=== PATIENT | female | born 1955 | race Caucasian/White ===

== ENCOUNTER → 2023-09-13 08:09 | Outpatient (REF) | payer MEDICARE, OTHER, SELFPAY | LOC: WDC 08:09 | PROVIDERS: ATTENDING PHYSICIAN Obstetrics & Gynecology; FAMILY PHYSICIAN Obstetrics & Gynecology | DX: Z12.31 Encounter for screening mammogram for malignant neoplasm of breast (principal) | CPT/HCPCS: 77063; 77067 ==

== ENCOUNTER → 2023-12-14 09:25 | Outpatient (REF) | payer MEDICARE, OTHER, SELFPAY | LOC: RAD 09:25 | PROVIDERS: ATTENDING PHYSICIAN Nurse Practitioner; FAMILY PHYSICIAN Internal Medicine | DX: R10.2 Pelvic and perineal pain (principal); K57.90 Diverticulosis of intestine, part unspecified, without perforation or abscess without bleeding | CPT/HCPCS: 74178; Q9967 ==

== ENCOUNTER → 2024-01-06 17:15 | Outpatient (REF) | payer MEDICARE, OTHER, SELFPAY | LOC: MRI 17:15 | PROVIDERS: ATTENDING PHYSICIAN Internal Medicine | DX: R20.2 Paresthesia of skin (principal) | CPT/HCPCS: 70553; A9575 ==

== ENCOUNTER 2024-04-17 13:11 | Observation (INO) | payer MEDICARE, OTHER, SELFPAY ==
[2024-04-17] VITALS (10 sets, daily range): BP systolic 82–123; BP diastolic 51–69; BMI 23.6; BMI 22.9
--- NOTE | 2024-04-17 09:04 | ED.GENMED ---
History of Present Illness
<Laruel Victoria MD, Resident - Last Filed: 04/17/24 11:34>
General
Chief Complaint: Abdominal Pain
Source: patient
Exam Limitations: none
Time Seen by Provider: 04/17/24 08:28
Nursing documentation reviewed up to this point in time: agreed with
Travel History
Have you traveled to any high risk areas for coronavirus over the past 14 days?: No
Have you had any contact with someone who has COVID-19?: No
Do you have any symptoms of coronavirus? Fever > 100 degrees, chills, cough, shortness of breath, sore throat, loss of taste or smell, muscle aches, or headache?: No
History of Present Illness
History of Present Illness:
68-year-old female with past medical history significant for diverticulitis, UTI, seizure disorder with last seizure in 2014, appendectomy, tubal ligation presents to the hospital for evaluation of nausea and abdominal pain x 5 days. 5 days ago
she developed severe nausea. Patient used Pepto-Bismol for 2 days without any relief then she started developing severe left lower quadrant pain that is intermittent, and pulsatile in nature, worsening over the last 3 days currently radiating into
her right lower quadrant and lower back, 10/10 in intensity. She took 2 days worth of amoxicillin prescription from her leftover pills with no relief over the last 2 days. She feels moderately constipated, and her last bowel movement was
yesterday. She denies change in the color of her stool or fresh blood in the stool. She also denies having any vomitings, fevers, chills, painful defecation, dysuria, frequency, hesitancy, flank pain, chest pain, shortness of breath, palpitations.
Past History
<Laurel Victoria MD, Resident - Last Filed: 04/17/24 11:34>
Past History
ED Past Medical History: GERD and Other (Diverticulosis)
ED Past Surgical History: Gynecological
Social History
Tobacco: Non-smoker
Alcohol: Occasional
Drug: None
Personal:
Living: with family
Employment: Employed
Family History
Family History: Other
Phy Exam
<Laurel Victoria MD, Resident - Last Filed: 04/17/24 11:34>
General Physical Exam
General Presentation: well appearing and no apparent distress
General age: appears stated age
General Skin: warm
General Habitus: normal
General Mental: alert
General Hydration: appears well hydrated
ENT Exam
ENT Exam: EOMI, TM's normal and pharynx normal
Eye Exam
Eye Exam: PERRL and EOMI
Cardiovascular Exam
Cardiovascular Exam: regular rate/rhythm, no edema, no gallop, no murmur and normal peripheral pulses
Heart Sounds: normal
Pulmonary Exam
Pulmonary Exam: lungs clear, no respiratory distress, no rales, no crackles and no rhonchi
Gastrointestinal Exam
Gastrointestinal Exam: soft, non distended, no cva tenderness, abnormal bowel sounds, rebound (in LLQ), tender and other (patient refused rectal exam.)
Neurological Exam
Neurological Exam: alert, no motor deficits and normal reflexs
Musculoskeletal Exam
Musculoskeletal Exam: no edema
Skin Exam
Skin Exam: normal color
Course
<Laurel Victoria MD, Resident - Last Filed: 04/17/24 11:34>
Orders/Labs/Results
Orders:
Orders
04/17/24 08:53
Ketorolac [Toradol] 15 mg IV NOW STA
04/17/24 08:54
CT Abd/Pel (IV only)-DH only Urgent
Reason For Exam: Rebound tenderness in LLQ
04/17/24 08:55
0.9% Sodium Chloride 1000 ml [Nss] 1,000 ml IV BOLUS
04/17/24 08:57
Diphenhydramine [Benadryl] 50 mg IV NOW STA
04/17/24 09:00
Ondansetron Injectable [Zofran] 4 mg IV NOW STA
04/17/24 09:02
Complete Blood Count/With Diff Urgent
Comprehensive Metabolic Panel Urgent
Lipase Urgent
Urinalysis Reflex To Culture Urgent
Date Specimen was Collected: 04/17/24
Time Specimen was Collected: 08:58
Urine Microscopic Reflex Cult Urgent
Diphenhydramine [Benadryl] 50 mg IV NOW STA
Diphenhydramine [Benadryl] 50 mg IV NOW STA
Hydrocortisone Sod Succinate [Solu-Cortef] 200 mg IV NOW STA
04/17/24 11:27
CefTRIAXone [Rocephin] 1,000 mg IV NOW STA
HYDROmorphone [Dilaudid] 0.5 mg IV NOW STA
MetroNIDAZOLE 500 MG/100 ML [Flagyl 500 mg] 100 ml IV NOW
Abnormal Lab Results
04/17/24
09:02
Hct 36.8 L %
(37.0-47.0)
Ur Occult Blood Reflex 2+ A
(Negative)
Urine Bacteria (Reflex) Few A
(Negative)
04/17/24 09:02
04/17/24 09:02
Vital Signs
Initial and Last Documented VS:
Initial Vital Signs
Temp Pulse Resp BP Pulse Ox
98.3 F 69 16 104/66 100
04/17/24 07:09 04/17/24 07:09 04/17/24 07:09 04/17/24 07:09 04/17/24 07:09
Last Documented Vital Signs
Temp Pulse Resp BP Pulse Ox
98.3 F 69 16 104/66 97
04/17/24 07:09 04/17/24 07:09 04/17/24 07:09 04/17/24 11:00 04/17/24 11:15
<Babatunde Jose MD - Last Filed: 04/17/24 11:31>
Orders/Labs/Results
Orders:
Orders
04/17/24 08:53
Ketorolac [Toradol] 15 mg IV NOW STA
04/17/24 08:54
CT Abd/Pel (IV only)-DH only Urgent
Reason For Exam: Rebound tenderness in LLQ
04/17/24 08:55
0.9% Sodium Chloride 1000 ml [Nss] 1,000 ml IV BOLUS
04/17/24 08:57
Diphenhydramine [Benadryl] 50 mg IV NOW STA
04/17/24 09:00
Ondansetron Injectable [Zofran] 4 mg IV NOW STA
04/17/24 09:02
Complete Blood Count/With Diff Urgent
Comprehensive Metabolic Panel Urgent
Lipase Urgent
Urinalysis Reflex To Culture Urgent
Date Specimen was Collected: 04/17/24
Time Specimen was Collected: 08:58
Urine Microscopic Reflex Cult Urgent
Diphenhydramine [Benadryl] 50 mg IV NOW STA
Diphenhydramine [Benadryl] 50 mg IV NOW STA
Hydrocortisone Sod Succinate [Solu-Cortef] 200 mg IV NOW STA
04/17/24 11:27
CefTRIAXone [Rocephin] 1,000 mg IV NOW STA
HYDROmorphone [Dilaudid] 0.5 mg IV NOW STA
MetroNIDAZOLE 500 MG/100 ML [Flagyl 500 mg] 100 ml IV NOW
Abnormal Lab Results
04/17/24
09:02
Hct 36.8 L %
(37.0-47.0)
Ur Occult Blood Reflex 2+ A
(Negative)
Urine Bacteria (Reflex) Few A
(Negative)
04/17/24 09:02
04/17/24 09:02
Vital Signs
Initial and Last Documented VS:
Initial Vital Signs
Temp Pulse Resp BP Pulse Ox
98.3 F 69 16 104/66 100
04/17/24 07:09 04/17/24 07:09 04/17/24 07:09 04/17/24 07:09 04/17/24 07:09
Last Documented Vital Signs
Temp Pulse Resp BP Pulse Ox
98.3 F 69 16 104/66 97
04/17/24 07:09 04/17/24 07:09 04/17/24 07:09 04/17/24 11:00 04/17/24 11:15
<Laurel Victoria MD, Resident - Last Filed: 04/17/24 11:34>
MDM/Problems Addressed
Differential Diagnosis Includes:
Diverticulitis, colitis, IBD, celiac's, renal stones, volvulus, bowel obstruction, adhesions.
MDM/Problems Addressed:
Nausea, abdominal pain addressed with Zofran and ketorolac
Benadryl for contrast allergy given.
Chronic conditions affecting care: Previous abdomnial surgery
<Laurel Victoria MD, Resident - Last Filed: 04/17/24 11:34>
*Radiology
Radiology exam reviewed: preliminary read by ED provider and radiology read reviewed
*Pulse Oximetry
Patient hypoxic: no
*EKG
Interpreted by ED Provider?: NA
*Business Professor Interpretation
Rate: Business Professor- N/A
*Critical Care Note
Total Time (30-74mins, 75-104mins- exclusive of procedures): Not Applicable
<Laurel Victoria MD, Resident - Last Filed: 04/17/24 11:34>
Update Note
Update Note:
Pain patient's lab results and the CT evaluation is within normal limits.
Consider other possible diagnoses such as inflammatory bowel disease, functional pain, irritable bowel syndrome, colitis, GI causes.
Updated patient on her labs and CT evaluation. Reassessment for pain showed mild improvement of her abdominal pain to 5/10.
ED Attending Note
<Laurel Victoria MD, Resident - Last Filed: 04/17/24 11:34>
-
Portions of this chart may have been created with voice recognition software.� Occasional wrong word or��sound alike� substitutions may have occurred due to the inherent limitations of voice recognition software.
<Babatunde Jose MD - Last Filed: 04/17/24 11:31>
ED Attending Note
Patient seen and examined by attending physician: Yes
I performed a history and physical exam of patient and discussed management with resident, I reviewed resident's note and agree with documented findings and plan of care.: Yes
ED Attending Note:
I have seen and evaluated the patient with a [id number] encounter. I have spoken to the resident and involved in the medical history, the physical exam, medical decision making.
Evaluation and management service: agree unless noted differently below.
Results interpretation: agree unless noted differently below.
Focused HPI: 68-year-old female with past medical history as noted presents to the emergency room for evaluation of abdominal pain. Patient reports onset of symptoms about a week ago and they have been constant and worsening since then. She
reports initially a vague lower abdominal pain since is localized to the left lower quadrant. Associated with nausea and constipation. No vomiting. No fever or chills. No urinary symptoms. She says similar to prior episodes of diverticulitis.
She says that she took some leftover doses of amoxicillin over the past 48 hours but symptoms were not improving and so she came to the ER for assessment.
Physical exam: Awake alert not in distress. Vital signs normal. Abdomen soft, diffusely tender maximal in the left lower quadrant with guarding in the left lower quadrant.
Medical Decision Makin-year-old female presents with worsening left lower quadrant abdominal pain similar to prior episodes of diverticulitis. Vitals and exam as above. Place an IV send labs including a CBC and a CMP, urinalysis. Will check
CT abdomen pelvis with IV contrast (patient has minor dye allergy, will pretreat with steroid and Benadryl). Will treat pain and provide IV fluids. Will monitor closely reassess after the above.
Labs reviewed: CBC and CMP unremarkable, urinalysis shows no signs of acute infection. CT abdomen pelvis negative for any acute pathology however on clinical reassessment patient still having significant pain and markedly tender to the touch with
guarding. Possible that she has occult diverticulitis based on location and history�CT did show diverticular disease. Added on lactate. Will cover with antibiotics in case of developing diverticulitis but I think with her degree of pain and
tenderness she should be admitted for observation and serial exams. Will provide additional pain control. Discussed case with hospitalist.
Discharge Plan
Departure
Patient Disposition: Admit
Date of Disposition: 04/17/24
Time of Disposition: 11:32
Admit to doctor: Jonathan Arriola MD
Presentation/result/management discussed w/ accepting MD/DO: Hospitalist
Discharge Problem:
Abdominal pain
Prescriptions:
No Action
phenazopyridine 200 mg Tablet
200 mg PO BID
Theragen Tablet
1 tab PO DAILY
ciprofloxacin HCl 500 mg Tablet
500 mg PO BID
Rx Instructions:
12/28/2022, patient filled medication on 12/23/2022 and takes 500 mg tab BID for 7 days
calcium carbonate [Calcium 500] 500 mg calcium (1,250 mg) Tablet
500 mg PO DAILY
ibuprofen 400 mg Tablet
400 mg PO TID PRN (Reason: mild pain)
omeprazole 40 mg capsule,delayed release(DR/EC)
40 mg PO DAILY Qty: 14 0RF
Referrals:
Ary Fink MD [Family Provider] -
Interventions
Interventions:
*Risk Screen - Suicide Last Done: 04/17/24 07:10
*General Assessment Last Done: 04/17/24 08:59
*Neglect/Abuse Screening Last Done: 04/17/24 07:10
ED- Fall Risk Assessment Last Done: 04/17/24 09:19
*ED COVID-19 Vaccine History Last Done: 04/17/24 07:10
XA-Csanmh-[id number] Assessment Last Done: 04/17/24 08:59
Discharge Date and Time
Print Language: MALTESE
[2024-04-17] MEDS: TORADOL 15 MG IV (09:11)
[2024-04-17] MEDS: NSS 1000 IV ×2 (09:11→14:36)
[2024-04-17] MEDS: ZOFRAN 4 MG IV (09:12)
[2024-04-17] MEDS: BENADRYL 50 MG IV (09:12)
[2024-04-17] MEDS: SOLU-CORTEF 200 MG IV (09:13)
[2024-04-17 09:27] LABS: % Basophils 0.5 % (0-2); % Eosinophils 1.1 % (0-6); % Immature Granulocytes 0.4 % (0-0.5); % Lymphocytes 30.1 % (20.5-51.1); % Monocytes 6.2 % (1.7-9.3); % Neutrophils 61.7 % (42.2-75.2); Absolute Eosinophils 0.1 10^3/uL (0-0.7); Absolute Lymphocytes 1.7 10^3/uL (1.2-3.4); Absolute Monocytes 0.4 10^3/uL (0.1-0.6); Absolute Neutrophils 3.5 10^3/uL (1.4-6.5); Hematocrit 36.8 % (37.0-47.0); Hemoglobin 12.4 g/dL (12.0-16.0); Mean Corp Hgb Conc. 33.7 g/dL (33.0-37.0); Mean Corpuscular Hgb 28.8 pg (27.0-31.0); Mean Corpuscular Volume 85.6 fL (81.0-99.0); Mean Platelet Volume 9.1 fL (7.4-10.4); Nucleated Red Blood Cells % 0 %; Platelet Count 274 10^3/uL (130-400); Red Cell Dist. Width 12.2 % (11.5-14.5); White Blood Cell Count 5.7 10^3/uL (4.8-10.8)
[2024-04-17 09:39] LABS: ALT (SGPT) 14 U/L (0-35); AST (SGOT) 24 U/L (14-36); Albumin 4.1 g/dl (3.5-5.0); Alkaline Phosphatase 61 U/L (38-126); Blood Urea Nitrogen 12 mg/dl (7-17); Calcium 9.6 mg/dl (8.4-10.2); Carbon Dioxide 27 mmol/L (22-30); Chloride 105 mmol/L (98-107); Estimated Creatinine Clearance 76 ml/min; Glucose 95 mg/dl (70-99); Lipase 91 U/L (23-300); Potassium 4.4 mmol/L (3.5-5.1); Sodium 142 mmol/L (135-145); Total Bilirubin 0.7 mg/dl (0.2-1.3); Total Protein 6.8 g/dl (6.3-8.2); eGFR > 60.00
[2024-04-17 11:03] LABS: Urine Albumin Negative (Neg - Trace); Urine Bilirubin Negative (Negative); Urine Character Clear (Clear); Urine Color Straw; Urine Glucose Negative (Negative); Urine Ketone Negative (Negative); Urine Leukocyte Negative (Negative); Urine Nitrite Negative (Negative); Urine Occult Blood 2+ (Negative); Urine Specific Gravity 1.005 (<1.030); Urine Urobilinogen Negative (Neg - 1+)
[2024-04-17 11:16] LABS: Urine Bacteria Few (Negative); Urine Red Blood Cell 0-2 /HPF (0-2); Urine White Cell 0-2 /HPF (0-5)
[2024-04-17] MEDS: DILAUDID 0.5 MG IV ×2 (11:36→14:39)
[2024-04-17] MEDS: FLAGYL 500 MG 100 IV ×2 (11:36→20:17)
[2024-04-17] MEDS: ROCEPHIN 1000 MG IV (11:36)
--- NOTE | 2024-04-17 12:33 | HPS.HSE ---
Addendum entered and electronically signed by Yan Gaytan MD 04/17/24 13:15:
I saw and examined the patient.
The [employer] REPORT DEVELOPER or PA's note was reviewed and I agree with the note.
Comment:
This note serves as an addendum to the H&P by reservations sales supervisor HODAN Mali NORRIS
HPI
68F HX Diverticulitis, HX Sz pw acute LLQ abdominal pain worsening over past few days. Similar too prior HX Diverticulitis
LE: Extremely TTP LLQ with guarding.
Unremarkable Labs
Unremarkable CT AP
IMPRESSION
Acute LLQ persistent pain pain and tenderness - serial evaluation for evolving acute diverticulitis
- NPO and IVF
- Empiric IV CFTZ and IV Flagyl
- PRN Dilaudid PRN
- Anti emetics Zofram
- Obs for pain control and serial abdominal exams.
- CRS consulted
LMWH for DVT Px
Full code
Obs MS
Original Note:
Family Physician
-
Family Physician: Ary Fink
Chief Complaint
-
left lower quadrant abdominal pain
History of Present Illness
68-year-old female with past medical history significant for diverticulitis, UTI, seizure disorder with last seizure in 2014, appendectomy, tubal ligation presents to the hospital for evaluation of nausea and abdominal pain x 5 days. 5 days ago
she developed abdominal pain associated with nausea. she took Pepto Bismol with no relief in her symptoms. she started developing severe left lower quadrant pain that is intermittent, worsening over the last 3 days currently radiating into her lower
back. she took amoxicillin for past four days with some relief in her symptoms. yesterday her pain got worse which prompted her to come to the ER. denied fever, chills, SUMMERS, dizzy or syncopal episode. denied chest pain, sob. denied dysuria or
hematuria.
CT with no acute findings. received Flagyl and ceftriaxone in ER. admitting for further management.
Medical History
Past Medical History
Past Medical History: Reports Other
Additional Past Medical History:
messenteric panniculitis
diverticulitis
hepatic cyst
colon polyps
GERD
Past Surgical History: Reports Other
Additional Past Surgical History:
tubal ligation
appendectomy
Social History
Tobacco: Non-smoker
Alcohol: None
Drug: None
Family History
Family History: Not pertinent
Allergies / Home Medications
Allergies reflects when Allergies were last updated in [facility].
Home Medications with original date entered in [facility]
Allergy/Medication List:
Allergies
Allergy/AdvReac Type Severity Reaction Status Date / Time
codeine Allergy Shortness Verified 12/28/22 08:04
of Breath
diazepam [From Valium] Allergy Shortness Verified 12/28/22 08:04
of Breath
fentanyl Allergy Shortness Verified 12/28/22 08:04
of Breath
iodine Allergy Rash Verified 12/28/22 08:04
morphine Allergy Shortness Verified 12/28/22 08:04
of Breath
oxycodone [From Percocet] Allergy Shortness Verified 12/28/22 08:04
of Breath
valsartan [From Diovan] Allergy Shortness Verified 12/28/22 08:04
of Breath
Home Medications
No Meds [No Current Medications] 04/17/24
Review of Systems
-
Constitutional: Reports No Symptoms
EENT: Reports No Symptoms
Respiratory: Reports No Symptoms
Cardiac: Reports No Symptoms
Abdomen/GI: Reports Abdominal Pain and Nausea
: Reports No Symptoms
Musculoskeletal: Reports No Symptoms
Skin: Reports No Symptoms
Neurological: Reports No Symptoms
Endocrine: Reports No Symptoms
Hematologic/Lymphatic: Reports No Symptoms
Psych: Reports No Symptoms
Physical Exam
Vital Signs
Vital Signs
Temp Pulse Resp BP Pulse Ox
98.3 F 69 16 98/60 95
04/17/24 07:09 04/17/24 07:09 04/17/24 07:09 04/17/24 12:00 04/17/24 12:15
Physical Exam
General: Well Developed, Well Nourished and No Apparent Distress
HEENT: NormoCephalic, Moist mucous membranes and Atraumatic
Respiratory: Clear
Cardiac: S1/S2 and Regular Rhythm; No Murmur or Rub
GI: Soft, Non Distended, Normal Bowel Sounds and Tender; No Organomegaly
Rectal: Deferred by Provider
Musculoskeletal: No Clubbing, No Cyanosis and No Edema
Skin: No Rash
Neuro: AO x 3 and Nonfocal/grossly intact
Psych: Calm
Laboratory Results
-
04/17/24 09:02
04/17/24 09:02
Laboratory Results
Total Bilirubin 0.7 mg/dl (0.2-1.3) 04/17/24 09:02
AST 24 U/L (14-36) 04/17/24 09:02
ALT 14 U/L (0-35) 04/17/24 09:02
Alkaline Phosphatase 61 U/L (38-126) 04/17/24 09:02
Lipase 91 U/L (23-300) 04/17/24 09:02
Data Reviewed
-
CT Scan: Report Reviewed by me
Lab Data: Labs Reviewed by me
Impression/Plan
-
#abdominal pain likely diverticulitis
-CT abdomen pelvis with No specific findings to explain pain. No acute intra-abdominal process identified.
2. Hepatic fatty infiltration. Benign hepatic simple cysts and probable cysts as seen previously.
3. Diverticulosis without diverticulitis.
-keep patient NPO
-IV ceftriaxone and Flagyl continued
-Dilaudid prn for pain
-Tylenol prn for fever
-CTM
#DVT prophylaxis
-Lovenox
#CODE status
-full code
--- NOTE | 2024-04-17 14:27 | CON.CRS ---
Consultation
-
Date/Time Consultation Requested: 04/17/2024, 13:08
Date/Time Consultation Performed: 04/17/2024, 15:00
Requesting Provider: Ervin Samson
Performing Provider: Luis Ramires MD
Reason for Consultation: abdominal pain
Medical History
-
Chief Complaint: abdominal pain
History of Present Illness:
68-year-old female with a past medical history of diverticulitis, presents to [facility] complaining of left lower abdominal pain and nausea for the past 5 days. The patient tried Pepto-Bismol with no relief. She denies fevers but did have
some chills. She states it feels like the pain is radiating into her lower back and is worsened over the past 3 days. She took four tabs of amoxicillin that she had at home. Her bowel movements are typically regular but have been more constipated
the past few days. She denies bleeding. Given the worsening pain she came to the ER. The patient states she has had diverticulitis in the past and she believes she was treated at [facility] for this.
The patient's last colonoscopy was by Dr. Vargas in October 2022 which showed diverticulosis in the sigmoid colon, descending colon, transverse colon, and in the ascending colon as well as three 2 mm polyps in the rectum. Pathology was consistent
with hyperplastic polyps.
The patient has underwent several CTs of the abdomen and pelvis in the past. Her last CT was due to pelvic and perineal pain in December 2023 which showed diverticula with no evidence for diverticulitis. CT in December 2022 showed mild inflammatory
process the intestinal tract. CT in May 2022 showed acute appendicitis. CT in February 2020 showed mild hazy inflammatory stranding at the root of the mesentery suggesting a low-grade mesenteric panniculitis. CT in October 2017 showed no acute
abnormality in the abdomen or pelvis.
She underwent an appendectomy for appendicitis by Dr. Giacomo Ga on 06/14/2022. She then saw him in the office in December 2022 for follow-up for her diverticulitis history. Dr. Ga had reviewed the above imaging during that visit. During the
visit she had complained of chronic left lower quadrant pain since 2018. At that visit he determined there were no grounds for surgery.
In the ER her WBC is 5.7. Her vital signs are normal and she remains afebrile. CT of the abdomen and pelvis shows no specific findings to explain the pain, no acute intra-abdominal process identified, diverticulosis without diverticulitis. Given
her abdominal pain, we have been asked to evaluate the patient for further surgical opinion.
Past Medical History
Past Medical History: Other (messenteric panniculitis, diverticulitis, hepatic cyst, colon polyps, GERD)
Past Surgical History: Appendectomy, Gynecological (Tubal ligation) and Other
Social History
Tobacco: Non-Smoker
Alcohol: None
Drug: None
Family History
Family History: Reviewed & Not Pertinent
Allergies / Home Medications
Allergy/AdvReac Type Severity Reaction Status Date / Time
codeine Allergy Shortness Verified 12/28/22 08:04
of Breath
diazepam [From Valium] Allergy Shortness Verified 12/28/22 08:04
of Breath
fentanyl Allergy Shortness Verified 12/28/22 08:04
of Breath
iodine Allergy Rash Verified 12/28/22 08:04
morphine Allergy Shortness Verified 12/28/22 08:04
of Breath
oxycodone [From Percocet] Allergy Shortness Verified 12/28/22 08:04
of Breath
valsartan [From Diovan] Allergy Shortness Verified 12/28/22 08:04
of Breath
�Medication �Instructions �Recorded �Confirmed �Type
No Meds [No Current Medications] 04/17/24 04/17/24 History
Review of Systems
-
History Source: Patient
Constitutional: Chills
Abdomen/GI: Abdominal Pain, Nausea and Constipated
A 10 point review of systems was completed, and was negative except as per HPI.
Physical Exam
Vital Signs
Temp 98 F 04/17/24 14:23
Pulse 82 04/17/24 14:23
Resp Rate 18 04/17/24 14:23
Blood pressure 110/68 04/17/24 14:23
SaO2 98 04/17/24 14:23
04/16/24 04/17/24 04/18/24
06:59 06:59 06:59
Actual Weight 66.179 kg
Body Mass Index (BMI) 22.9
Lab Results / Allergies
04/17/24 09:02
04/17/24 09:02
WBC 5.7 10^3/uL (4.8-10.8) 04/17/24 09:02
Hgb 12.4 g/dL (12.0-16.0) 04/17/24 09:02
Hct 36.8 % (37.0-47.0) L 04/17/24 09:02
Plt Count 274 10^3/uL (130-400) 04/17/24 09:02
Abs Immat Gran (auto) 0.0 10^3/uL (0-0.05) 04/17/24 09:02
Neutrophils % 61.7 % (42.2-75.2) 04/17/24 09:02
Allergy/AdvReac Type Severity Reaction Status Date / Time
codeine Allergy Shortness Verified 12/28/22 08:04
of Breath
diazepam [From Valium] Allergy Shortness Verified 12/28/22 08:04
of Breath
fentanyl Allergy Shortness Verified 12/28/22 08:04
of Breath
iodine Allergy Rash Verified 12/28/22 08:04
morphine Allergy Shortness Verified 12/28/22 08:04
of Breath
oxycodone [From Percocet] Allergy Shortness Verified 12/28/22 08:04
of Breath
valsartan [From Diovan] Allergy Shortness Verified 12/28/22 08:04
of Breath
Physical Exam
General: Well Developed, Well Nourished and No Apparent Distress
GI: Soft
Skin: Warm
Neuro: AO x 3
Psych: Calm
Data Reviewed
-
CT Scan: Image Personally Visualized and interpreted and Discussed with Patient
Labs: Labs Reviewed by me, Discussed with Physician and Discussed with Patient
Old Records: Reviewed
Assessment / Plan
-
Assessment: 68-year-old female with chronic left lower quadrant pain as well as an appendectomy by Dr. 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
Plan:
-No plans for urgent surgery at this time
-Agree with IV antibiotics
-Trend labs
-Will follow
--- NOTE | 2024-04-17 15:00 | PTCARENOTE ---
no delay received. [email or web address] 0.5mg Dilaudid ordered and admin. call thayer in reach. plan of care updated. will monitor.
[2024-04-17] MEDS: LOVENOX 40 MG SC (17:35)
[2024-04-18] MEDS: ZOFRAN 4 MG IV (01:18)
[2024-04-18 03:33] VITALS: BP 111/66
[2024-04-18] MEDS: FLAGYL 500 MG 100 IV (04:09)
[2024-04-18] MEDS: NSS 1000 IV (04:10)
[2024-04-18 07:20] VITALS: BP 90/56
[2024-04-18 08:11] LABS: Blood Urea Nitrogen 14 mg/dl (7-17); Calcium 8.8 mg/dl (8.4-10.2); Carbon Dioxide 22 mmol/L (22-30); Chloride 110 mmol/L (98-107); Estimated Creatinine Clearance 76 ml/min; Glucose 94 mg/dl (70-99); Potassium 3.6 mmol/L (3.5-5.1); Sodium 141 mmol/L (135-145); eGFR > 60.00
--- NOTE | 2024-04-18 08:18 | W.PN.HOSP.TC ---
Today's Communication/Plan
-
discharge
Assessment / Plan
Assessment / Plan
Physical Exam
General: Well Developed, Well Nourished and No Apparent Distress
HEENT: NormoCephalic, Moist mucous membranes and Atraumatic
Respiratory: Clear
Cardiac: S1/S2 and Regular Rhythm; No Murmur or Rub
GI: Soft, Non Distended, Normal Bowel Sounds and Tender; No Organomegaly
Musculoskeletal: No Clubbing, No Cyanosis and No Edema
Skin: No Rash
Neuro: AO x 3 and Nonfocal/grossly intact
Psych: Calm
68F hx diverticulitis, remote hx seizure 2014, appendectomy, tubal ligation p/w progressive nausea and abd pain x 5 days. She took Pepto Bismol with no relief in her symptoms. she started developing severe left lower quadrant pain that was
intermittent, worsening over the last 3 days. She took leftover amoxicillin at home. Pain worsened after she ran out of the few tablets abx at home, prompting ED visit. VSS afebrile CT abd/pelvis noted no acute abn's. Patient noted symptom relief
following start of empiric abx.
#abdominal pain suspected diverticulitis symptomatically improved with abx
CT abdomen pelvis appreciated
1. No specific findings to explain pain. No acute intra-abdominal process identified.
2. Hepatic fatty infiltration. Benign hepatic simple cysts and probable cysts as seen previously.
3. Diverticulosis without diverticulitis.
-Tolerating Regular Diet
-IV ceftriaxone and Flagyl transitioned to Augmentin plan for 7 days
-Dilaudid prn for pain
-Tylenol prn for fever
-Urinalysis not suggestive of UTI
-CRS eval appreciated
-Patient having regular bowel movements, denies diarrhea, eager to go home, outpt follow up with her GI doctor and Vice President & General Manager [employer] recommended.
#DVT prophylaxis
-Lovenox
#CODE status
-full code
Medically stable for discharge home with outpatient follow up recommendations.
Discussed with patient and patient's José Miguel
Total Time Preparing Discharge ___40____ minutes including examination of the patient, summary of the hospital stay, instructions for continuing care to all relevant caregivers; and preparation of discharge records, prescriptions, and referral
forms if necessary.
Anticipated Discharge: Today
Subjective/Interval History
-
Date of Service: April 18, 2024
Symptomatically improved. Patient reports feeling better since start of abx. Some tenderness left sided abd pain persists but significantly improved per patient. Overall reports feeling well, eager to go home.
Objective Data
-
Labs:
Laboratory Results
04/18/24
06:52
WBC Pending
Hgb Pending
Hct Pending
Plt Count Pending
Sodium 141
Potassium 3.6
Chloride 110 H
Carbon Dioxide 22
BUN 14
Creatinine 0.7
Glucose 94
Calcium 8.8
Vital Signs:
Vital Signs
Temp Pulse Resp BP Pulse Ox
99.2 F 88 20 90/56 99
04/18/24 07:20 04/18/24 07:20 04/18/24 07:20 04/18/24 07:20 04/18/24 07:20
I&O
04/17/24 04/18/24 04/19/24
06:59 06:59 06:59
Intake Total 1242 / 1242
Balance 1242 / 1242
[2024-04-18] MEDS: NSS 500 IV (08:20)
[2024-04-18 09:15] LABS: Hemoglobin 11.5 g/dL (12.0-16.0); Mean Corp Hgb Conc. 32.9 g/dL (33.0-37.0); Mean Corpuscular Hgb 28.5 pg (27.0-31.0); Mean Corpuscular Volume 86.8 fL (81.0-99.0); Mean Platelet Volume 9.3 fL (7.4-10.4); Platelet Count 226 10^3/uL (130-400); Red Blood Cell Count 4.03 10^6/uL (4.20-5.40); White Blood Cell Count 8.9 10^3/uL (4.8-10.8)
--- NOTE | 2024-04-18 13:00 | W.DCSUMMARY ---
Discharge Summary
Discharge Data
Date of Admission: 04/17/24
Date of Discharge: 04/18/24
-
Pending Results: No
Discharge Plan
-
Patient Disposition: Home (Routine Discharge)
Discharge Diagnosis/Procedures: Abdomen Pain suspected due to Diverticulitis
Condition: Fair
Diet: As tolerated and Regular
Additional Diets: Reduce to low residue diet if abdomen discomfort worsens with food. Then advance as tolerated when symptoms improve.
Activity: As tolerated
Driving Restrictions: As prior to admission
Bathing Restrictions: None
Activity Restrictions/Additional Instructions:
Follow up with your primary care provider in 1 week of discharge and, in 2-4 weeks of discharge, follow up with your GI doctor and Wet Milling Wheel Operator.
Augmentin has been prescribed for suspected diverticulitis, 7 days treatment.
Please take medications as prescribed/recommended and follow up with primary care provider and/or other healthcare provider involved in your care for further adjustments to your medication regimen as necessary.
Referrals:
Ary Fink MD [Family Provider] - in one week
Maria L Amaral MD [Active] - in two to four weeks
Prescriptions:
New
amoxicillin-pot clavulanate 875-125 mg Tablet
1 tab PO TID 7 Days Qty: 21 0RF
Discharge Orders:
Discharge Patient (As Directed); Ordered 04/18/24
Ordered By: Junior Toth
Discharge Date and Time
Print Language: GERMAN
--- NOTE | 2024-04-18 13:27 | CM ---
Patient was admitted under OBS, BOJORQUEZ letter provided to patient, explained and signed. employment evaluator/case manager reviewed patient's chart and met with patient and patient lives with her spouse in a 2 story home, patient is independent with adl's and ambulation,
no dme, plan is to home today no needs.
PCP: Ary Fink
Pharmacy: [facility]
Plan; Home today no needs.
[2024-04-18] MEDS: AUGMENTIN 875 MG/125 MG 1 TABLET PO (14:11)
[2024-04-18 14:18] VITALS: BP 106/60
== END 2024-04-18 14:34 | disposition home or self-care (01) ==
LOC: 4 WEST ACU 13:11
PROVIDERS: Registered Nurse; Student in an Organized Health Care Education/Training Program; ADMITTING PHYSICIAN Internal Medicine; ATTENDING PHYSICIAN Internal Medicine; CONSULT PHYSICIAN Surgery; EMERGENCY PHYSICIAN Emergency Medicine; FAMILY PHYSICIAN Internal Medicine
DX: K57.30 Diverticulosis of large intestine without perforation or abscess without bleeding (principal); K76.0 Fatty (change of) liver, not elsewhere classified
CPT/HCPCS: 74177; 80048; 80053; 81003; 81015; 83690; 85025; 85027; 93005; 96365; 96375; 96376; 99285; G0378; Q9967

== ENCOUNTER → 2024-09-14 08:03 | Outpatient (REF) | payer MEDICARE, OTHER, SELFPAY | LOC: WDC 08:03 | PROVIDERS: ATTENDING PHYSICIAN Nurse Practitioner Obstetrics & Gynecology; FAMILY PHYSICIAN Internal Medicine | DX: Z12.31 Encounter for screening mammogram for malignant neoplasm of breast (principal) | CPT/HCPCS: 77063; 77067 ==

== ENCOUNTER 2024-11-02 14:19 | Emergency (ER) | payer MEDICARE, OTHER, SELFPAY ==
[2024-11-02 14:22] VITALS: BP 151/98
[2024-11-02 14:42] LABS: % Basophils 0.8 % (0-2); % Eosinophils 1.4 % (0-6); % Immature Granulocytes 0.3 % (0-0.5); % Lymphocytes 30.9 % (20.5-51.1); % Monocytes 6.2 % (1.7-9.3); % Neutrophils 60.4 % (42.2-75.2); Absolute Basophils 0.1 10^3/uL (0-0.2); Absolute Eosinophils 0.1 10^3/uL (0-0.7); Absolute Lymphocytes 2.2 10^3/uL (1.2-3.4); Absolute Monocytes 0.4 10^3/uL (0.1-0.6); Absolute Neutrophils 4.3 10^3/uL (1.4-6.5); Hematocrit 37.3 % (37.0-47.0); Hemoglobin 12.8 g/dL (12.0-16.0); Mean Corp Hgb Conc. 34.3 g/dL (33.0-37.0); Mean Corpuscular Hgb 28.4 pg (27.0-31.0); Mean Corpuscular Volume 82.7 fL (81.0-99.0); Nucleated Red Blood Cells % 0 %; Platelet Count 281 10^3/uL (130-400); Red Blood Cell Count 4.51 10^6/uL (4.20-5.40); Red Cell Dist. Width 12.5 % (11.5-14.5); White Blood Cell Count 7.1 10^3/uL (4.8-10.8)
[2024-11-02 14:57] LABS: ALT (SGPT) 13 U/L (0-35); AST (SGOT) 21 U/L (14-36); Albumin 4.3 g/dl (3.5-5.0); Alkaline Phosphatase 67 U/L (38-126); Blood Urea Nitrogen 13 mg/dl (7-17); Calcium 9.8 mg/dl (8.4-10.2); Carbon Dioxide 23 mmol/L (22-30); Chloride 108 mmol/L (98-107); Glucose 110 mg/dl (70-99); Lipase 111 U/L (23-300); Potassium 3.7 mmol/L (3.5-5.1); Sodium 140 mmol/L (135-145); Total Bilirubin 0.7 mg/dl (0.2-1.3); Total Protein 7.2 g/dl (6.3-8.2); eGFR > 60.00
[2024-11-02 14:58] LABS: Lactic Acid 1.1 mmol/L (0.7-2.0)
--- NOTE | 2024-11-02 16:55 | ED.GENMED ---
History of Present Illness
General
Chief Complaint: Abdominal Pain
Source: patient
Exam Limitations: none
Time Seen by Provider: 11/02/24 16:02
Nursing documentation reviewed up to this point in time: agreed with
History of Present Illness
History of Present Illness:
Patient to ED with complaint of lower abd. pain. Symptoms started last week. SHe has been taking an old rx of amoxicillin without improvement. Denies fever/chills. Reports nausea and anorexia. No vomiting or diarrhea. Brought to ED by spouse for
eval.
Past History
Past History
ED Past Medical History: GERD and Other (Diverticulosis)
ED Past Surgical History: Gynecological
Social History
Tobacco: Non-smoker
Alcohol: Occasional
Drug: None
Personal:
Living: with family
Employment: Employed
Family History
Family History: Other
Review of Systems
Review of Systems
Allergies reviewed?: Yes
All Other Systems: ROS reviewed and negative except as documented in HPI and ROS
Constitutional: Reports no symptoms
EENT: Reports no symptoms
Respiratory: Reports no symptoms
Cardiac: Reports no symptoms
ABD/GI: Reports abdominal pain (bilateral lower abd. pain) and nausea
: Reports no symptoms
Musculoskeletal: Reports no symptoms
Skin: Reports no symptoms
Neurological: Reports no symptoms
Psychiatric: Reports no symptoms
Phy Exam
General Physical Exam
General Presentation: moderate distress
General age: appears stated age
General Skin: warm and dry
General Habitus: normal
General Mental: alert
Cardiovascular Exam
Cardiovascular Exam: regular rate/rhythm and no edema
Gastrointestinal Exam
Gastrointestinal Exam: normal bowel sounds, soft, no organomegaly, no pulsatile mass, non distended and no cva tenderness
Palpation: left upper quadrant: Mild tenderness, left lower quadrant: Moderate tenderness, right upper quadrant: Mild tenderness and right lower quadrant: Moderate tenderness
Musculoskeletal Exam
Musculoskeletal Exam: full ROM and neuro vasc intact
Skin Exam
Skin Exam: normal color, warm/dry and no rash
Psychiatric Exam
Psychiatric Exam: normal mood/affect
Course
Orders/Labs/Results
Orders:
Orders
11/02/24 14:33
Lactic Acid Urgent
11/02/24 14:34
CMP [Comprehensive Metabolic Panel] Urgent
Complete Blood Count/With Diff Urgent
Lipase Urgent
11/02/24 16:50
0.9% Sodium Chloride 1000 ml [Nss] 1,000 ml IV BOLUS
Ondansetron Injectable [Zofran] 4 mg IV NOW STA
11/02/24 16:51
CT Abd/pel W Iv And Oral Contr Urgent
Comment:
Reason For Exam: lower abd. pain
Iohexol [Omnipaque] See Protocol PO NOW STA
Ketorolac [Toradol] 30 mg IV NOW STA
11/02/24 16:53
Diphenhydramine [Benadryl] 50 mg IV NOW STA
Hydrocortisone Sod Succinate [Solu-Cortef] 200 mg IV NOW STA
Abnormal Lab Results
11/02/24
14:34
Chloride 108 H mmol/L
(98-107)
Glucose 110 H mg/dl
(70-99)
11/02/24 14:34
11/02/24 14:34
Vital Signs
Initial and Last Documented VS:
Initial Vital Signs
Temp Pulse Resp BP Pulse Ox
97.8 F 87 20 151/98 98
11/02/24 14:22 11/02/24 14:22 11/02/24 14:22 11/02/24 14:22 11/02/24 14:22
Last Documented Vital Signs
Temp Pulse Resp BP Pulse Ox
97.8 F 87 20 108/68 98
11/02/24 14:22 11/02/24 14:22 11/02/24 14:22 11/02/24 18:00 11/02/24 19:00
*Radiology
Radiology exam reviewed: radiology read reviewed
*Pulse Oximetry
Patient hypoxic: no
*Critical Care Note
Total Time (30-74mins, 75-104mins- exclusive of procedures): Not Applicable
Update Note
Update Note:
Patient to ED wtih complaint of lower abdominal pain, feels like prior episodes of diverticulitis Labs reveiwed, stable. WBC normal, she remains afebrile. CT tonight neg for diverticulitis, no acute findings. Will discharge home, close follow
upw tih PCP. Recommend clear liquids x 24 hours, advance as tolerated. SHe was given instructions for s/s to return to ED and she is agreeable to plan.
ED Attending Note
-
Portions of this chart may have been created with voice recognition software.� Occasional wrong word or��sound alike� substitutions may have occurred due to the inherent limitations of voice recognition software.
Discharge Plan
Departure
Patient Disposition: Home (Routine Discharge)
Date of Disposition: 11/02/24
Time of Disposition: 20:36
Patient with high blood pressure during this ER visit?: No
Condition: Good
Covid-19: Not Applicable
Discharge Problem:
Abdominal pain
Instructions: Clear Liquid Diet, Abdominal Pain
Prescriptions:
No Action
amoxicillin-pot clavulanate 875-125 mg Tablet
1 tab PO TID 7 Days Qty: 21 0RF
Referrals:
Ary Fink MD [Family Provider, Internal Medicine] - Follow up in 2-3 days
Activity Restrictions/Additional Instructions:
Return to the emergency department immediately for any changes in/worsening of your symptoms.
Interventions
Interventions:
*Risk Screen - Suicide Last Done: 11/02/24 16:22
*General Assessment Last Done: 11/02/24 14:22
*Neglect/Abuse Screening Last Done: 11/02/24 16:22
*ED- Fall Risk Assessment Last Done: 11/02/24 16:22
*ED COVID-19 Vaccine History Last Done: 11/02/24 16:22
*Nursing Disposition Last Done: 11/02/24 20:46
KK-Bqlbrl-Gotxvocwyn Assessment Last Done: 11/02/24 16:22
Discharge Date and Time
Discharge Date/Time: 11/02/24 20:48
Print Language: TUVALUAN
[2024-11-02 16:56] VITALS: BMI 22.5
[2024-11-02] MEDS: TORADOL 30 MG IV (16:57)
[2024-11-02] MEDS: OMNIPAQUE 50 ML PO (16:57)
[2024-11-02] MEDS: ZOFRAN 4 MG IV (16:57)
[2024-11-02] MEDS: NSS 1000 IV (16:59)
[2024-11-02 17:06] VITALS: BP 117/75
[2024-11-02 18:00] VITALS: BP 108/68
[2024-11-02] MEDS: BENADRYL 50 MG IV (18:06)
[2024-11-02] MEDS: SOLU-CORTEF 200 MG IV (18:06)
== END 2024-11-02 20:48 | disposition home or self-care (01) ==
LOC: EMR 14:19
PROVIDERS: EMERGENCY PHYSICIAN Emergency Medicine; FAMILY PHYSICIAN Internal Medicine
DX: R10.30 Lower abdominal pain, unspecified (principal); R11.0 Nausea; R63.0 Anorexia
CPT/HCPCS: 96374; 96375; 96361; 99284; 74177; 80053; 83605; 83690; 85025; Q9967

== ENCOUNTER 2025-01-24 12:58 | Emergency (ER) | payer MEDICARE, OTHER, SELFPAY ==
[2025-01-24 12:59] VITALS: BP 118/71
[2025-01-24 15:56] VITALS: BP 109/62; BMI 22.8
[2025-01-24 16:00] VITALS: BP 107/61
[2025-01-24 16:36] LABS: Hematocrit 38.8 % (37.0-47.0); Hemoglobin 13.0 g/dL (12.0-16.0); Mean Corp Hgb Conc. 33.5 g/dL (33.0-37.0); Mean Corpuscular Volume 83.3 fL (81.0-99.0); Nucleated Red Blood Cells % 0 %; Platelet Count 288 10^3/uL (130-400); Red Cell Dist. Width 12.2 % (11.5-14.5)
--- NOTE | 2025-01-24 16:45 | ED.GENMED ---
History of Present Illness
General
Chief Complaint: Breathing Problem
Source: patient
Exam Limitations: none
Time Seen by Provider: 01/24/25 15:48
Nursing documentation reviewed up to this point in time: agreed with
History of Present Illness
History of Present Illness:
Patient to ED with complaint of chest pain, difficulty breathing. Symptoms started 2 weeks ago and breathing symptoms continue to worsen. Complains of headache and fatigue. Took home covid 2 days ago, neg. Denies fever/chills, recent illness. No
cough. Took tums for her chest pressure without improvement. Placed in an ortho boot approx for injury to her left foot. Wore boot for approx 2 weeks. Discontinued 2 weeks ago. No swelling or pain to lower extremities. No history of DVT.
Brought to ED by spouse for eval.
Past History
Past History
ED Past Medical History: GERD and Other (Diverticulosis)
ED Past Surgical History: Gynecological
Social History
Tobacco: Non-smoker
Alcohol: Occasional
Drug: None
Personal:
Living: with family
Employment: Employed
Family History
Family History: Other
Review of Systems
Review of Systems
Allergies reviewed?: Yes
All Other Systems: ROS reviewed and negative except as documented in HPI and ROS
Constitutional: Reports fatigue
EENT: Reports no symptoms
Respiratory: Reports trouble breathing
Cardiac: Reports chest pain
ABD/GI: Reports no symptoms
: Reports no symptoms
Musculoskeletal: Reports no symptoms
Skin: Reports no symptoms
Neurological: Reports headache and weakness
Endocrine: Reports no symptoms
Psychiatric: Reports no symptoms
Phy Exam
General Physical Exam
General Presentation: mild distress
General age: appears stated age
General Skin: warm and dry
General Habitus: normal
General Mental: alert
General Hydration: appears well hydrated
ENT Exam
ENT Exam: pharynx normal, neck supple, normocephalic and swallowing well
Cardiovascular Exam
Cardiovascular Exam: regular rate/rhythm and no edema
Pulmonary Exam
Pulmonary Exam: lungs clear and no respiratory distress
Neurological Exam
Neurological Exam: alert, oriented x3, CN II-XII intact, no motor deficits, no sensory deficits and speech normal
Musculoskeletal Exam
Musculoskeletal Exam: full ROM and neuro vasc intact
Skin Exam
Skin Exam: normal color, warm/dry and no rash
Psychiatric Exam
Psychiatric Exam: normal mood/affect
Scores
Heart Failure Risk
Heart Failure Risk Score: Not Applicable
Course
Orders/Labs/Results
Orders:
Orders
01/24/25 12:58
Electrocardiogram (*1) Urgent
Reason for Study: Shortness of Breath
EKG- Treatment ONCE
01/24/25 16:27
Complete Blood Count/With Diff Urgent
Comprehensive Metabolic Panel Urgent
Troponin I Urgent
01/24/25 16:51
CR Chest - 2 Views Urgent
Comment:
Reason For Exam: SOB, chest pain
01/24/25 17:33
COVID-19 Antigen Urgent
Source: Nasal Swab
D-Dimer Urgent
Influenza A+B Rapid Molecular Urgent
JEFF Source: Nasal Swab
Specimen Description:
01/24/25 18:29
Mag Hydrox/Al Hydrox/Simeth [Maalox] 30 ml Phenobarb/Hyoscy/Atropine/Scop [] 10 ml Viscous Lidocaine 2% [Xylocaine Viscous Cup] 10 ml PO NOW
01/24/25 18:39
Mag Hydrox/Al Hydrox/Simeth [Maalox] 30 ml .ROUTE .STK-MED ONE
Phenobarb/Hyoscy/Atropine/Scop [] 10 ml .ROUTE .STK-MED ONE
01/24/25 18:40
Viscous Lidocaine 2% [Xylocaine Viscous Cup] 15 ml .ROUTE .STK-MED ONE
01/24/25 18:44
Troponin I Urgent
01/24/25 19:50
Pantoprazole [Protonix] 40 mg PO NOW STA
Abnormal Lab Results
01/24/25
16:27
Chloride 109 H mmol/L
(98-107)
Glucose 101 H mg/dl
(70-99)
01/24/25 16:27
01/24/25 16:27
Vital Signs
Initial and Last Documented VS:
Initial Vital Signs
Temp Pulse Resp BP Pulse Ox
97.5 F 66 20 118/71 98
01/24/25 12:59 01/24/25 12:59 01/24/25 12:59 01/24/25 12:59 01/24/25 12:59
Last Documented Vital Signs
Temp Pulse Resp BP Pulse Ox
97.6 F 76 12 111/69 99
01/24/25 16:05 01/24/25 20:01 01/24/25 20:01 01/24/25 19:00 01/24/25 20:01
*Radiology
Radiology exam reviewed: radiology read reviewed
*Pulse Oximetry
SaO2: 100
Oxygen Mode of Delivery: Room air
Patient hypoxic: no
*Critical Care Note
Total Time (30-74mins, 75-104mins- exclusive of procedures): Not Applicable
Update Note
Update Note:
Patient to ED with complaitn of SOB, CP x 2 days. VSS, she remains afebrile. HRR, LCTA. CXR NAD. Labs without concerning findings. Troponin neg x 2. Ddimer neg. Given dominic olmstead in ED with improvement. Symptoms most likely related to
reflux. Will try a course of pantoprazole. SHe is discharged home, will follow upw ith PCP. Given instrucions on s/s to return to ED and she is agreeable to plan.
ED Attending Note
-
Portions of this chart may have been created with voice recognition software.� Occasional wrong word or��sound alike� substitutions may have occurred due to the inherent limitations of voice recognition software.
Discharge Plan
Departure
Patient Disposition: Home (Routine Discharge)
Date of Disposition: 01/24/25
Time of Disposition: 19:51
Patient with high blood pressure during this ER visit?: No
Condition: Good
Covid-19: Not Applicable
Discharge Problem:
Chest pain
Instructions: Acid reflux and GERD in adults, Chest Pain PCP Follow Up
Prescriptions:
New
pantoprazole 40 mg tablet,delayed release (DR/EC)
40 mg PO DAILY Qty: 20 0RF
No Action
amoxicillin-pot clavulanate 875-125 mg Tablet
1 tab PO TID 7 Days Qty: 21 0RF
Referrals:
NONE,* [Active, Internal Medicine]
Activity Restrictions/Additional Instructions:
FOllow up with your family doctor. Return to the emergency department immediately for any changes in/worsening of your symptoms.
Interventions
Interventions:
*Risk Screen - Suicide Last Done: 01/24/25 12:59
*General Assessment Last Done: 01/24/25 12:59
*Neglect/Abuse Screening Last Done: 01/24/25 12:59
*ED- Fall Risk Assessment Last Done: 01/24/25 16:00
*ED COVID-19 Vaccine History Last Done: 01/24/25 16:00
*Nursing Disposition Last Done: 01/24/25 20:09
ED- Cardiac Assessment Last Done: 01/24/25 16:00
ED- Pulmonary Assessment Last Done: 01/24/25 16:00
Discharge Date and Time
Discharge Date/Time: 01/24/25 20:09
Print Language: MALDIVIAN
[2025-01-24 16:56] LABS: ALT (SGPT) 15 U/L (0-35); AST (SGOT) 18 U/L (14-36); Albumin 4.2 g/dl (3.5-5.0); Alkaline Phosphatase 79 U/L (38-126); Blood Urea Nitrogen 16 mg/dl (7-17); Calcium 9.9 mg/dl (8.4-10.2); Carbon Dioxide 24 mmol/L (22-30); Chloride 109 mmol/L (98-107); Estimated Creatinine Clearance 75 ml/min; Glucose 101 mg/dl (70-99); Potassium 3.7 mmol/L (3.5-5.1); Sodium 138 mmol/L (135-145); Total Protein 7.1 g/dl (6.3-8.2); eGFR > 60.00
[2025-01-24 17:08] LABS: Troponin I < 0.012 ng/ml
[2025-01-24 17:53] LABS: D-Dimer 0.38 ug/mlFEU (0.00-0.50)
[2025-01-24 18:00] VITALS: BP 105/63
[2025-01-24 18:02] LABS: COVID-19 Antigen Negative (Negative)
[2025-01-24] MEDS: MAALOX 50 PO (18:45)
[2025-01-24 19:00] VITALS: BP 111/69
[2025-01-24 19:34] LABS: Troponin I < 0.012 ng/ml
[2025-01-24] MEDS: PROTONIX 40 MG PO (20:05)
== END 2025-01-24 20:09 | disposition home or self-care (01) ==
LOC: EMR 12:58
PROVIDERS: Emergency Medicine; Nurse Practitioner; EMERGENCY PHYSICIAN Emergency Medicine; FAMILY PHYSICIAN Internal Medicine
DX: R07.9 Chest pain, unspecified (principal); K21.9 Gastro-esophageal reflux disease without esophagitis
CPT/HCPCS: 99284; 71046; 80053; 84484; 85025; 85379; 87502; 87811; 93005